=== PATIENT | male | born 1985 | race Two or more races ===

== ENCOUNTER 2017-12-26 14:43 | Emergency (ER) | payer SELFPAY ==
[2017-12-26] MEDS ORDERED: Diphtheria,Pertussis(Acell),Tetanus Vaccine 0.5 ML SDV IM ONE (14:58)
[2017-12-26] MEDS ORDERED: ceFAZolin 1 GM Vial IM ONE (14:58)
[2017-12-26] MEDS ORDERED: Lidocaine 1% 20 ML MDV INJECT ONE (14:58)
--- NOTE | 2017-12-26 15:01 | EDM.PDOC ---
ED HPI GENERAL MEDICAL PROBLEM - General Chief Complaint: Upper Extremity Injury/Pain Stated Complaint: LEFT HAND THUMB LAC Time Seen by Provider: 12/26/17 14:52 Source of Information: Reports: Patient History Limitations: Reports: No Limitations - History of Present Illness INITIAL COMMENTS - FREE TEXT/NARRATIVE: Patient is a 32-year-old male presents ED complaining of a laceration to the left thumb. Patient was using a custom grinder and accidentally slipped cutting through his glove and into the IP of the left thumb. patient is unable to extend the distal phalanx. Bleeding controlled with direct pressure. Tetanus status is not up-to-date. He has no sensory changes noted. Last meal was last night. He's states he has been snacking throughout the course today. Has no additional past medical history and currently taking no medications. Left 1-Thumb Pain Score (Numeric/FACES): 7 - Related Data Allergies Allergy/AdvReac Type Severity Reaction Status Date / Time No Known Allergies Allergy Verified 12/26/17 14:52 Home Meds: Home Meds Cephalexin [Keflex] 500 mg PO QID #40 cap 12/26/17 [Rx] Past Medical History - Past Health History Medical/Surgical History: Denies Medical/Surgical History Review of Systems - Review of Systems Review Of Systems: ROS reveals no pertinent complaints other than HPI. ED EXAM, GENERAL - Physical Exam Exam: See Below Exam Limited By: No Limitations General Appearance: Alert, WD/WN, No Apparent Distress Neck: Normal Inspection Respiratory/Chest: No Respiratory Distress, No Accessory Muscle Use Cardiovascular: Normal Peripheral Pulses, Regular Rate, Rhythm Peripheral Pulses: 4+: Radial (L) Neurological: Alert, Oriented, Normal Cognition Psychiatric: Normal Affect, Normal Mood Skin Exam: Warm, Dry, Normal Color Front/Back Body Diagram: 1 - Approximately 3.2 cm deep lacertion extending over the IP of the left thumb with bleeding controlled. Unable to extend the distal phalanx. No sensory changes noted. With pulling wound edges apart bone is exposed. ED TRAUMA EXTREMITY PROCEDURES - Laceration/Wound Repair Left Other Lac/Wound Length In cm: 3.2 Appearance: Subcutaneous, Clean Distal NVT: Neuro & Vascular Intact, Other (complete laceration to the extensor tendon.) Anesthetic Type: Local Local Anesthesia - Lidocaine (Xylocaine): 1% Plain Local Anesthetic Volume: Other (8) Skin Prep: Chlorhexidine (Hibiciens), Saline, Sterile Drape Exploration/Debridement/Repair: Wound Explored, In a Bloodless Field, Explored to Base, No Foreign Material Found Closed With: Sutures Suture Size: 4-0 # of Sutures: 4 Suture Type: Prolene, Interrupted, Simple, Other (Attempted to close with 5.0 sutures #2 with minimal luckwith approximating the wound. Switched to 4.0 thereafter. ) Drain Placement: No Sterile Dressing Applied: Nurse Tetanus Status Addressed: Yes Complications: No Course - Vital Signs Last Recorded V/S: Last Vital Signs Temp 98.1 F 12/26/17 15:01 Pulse 78 12/26/17 15:01 Resp BP 116/86 12/26/17 15:01 Pulse Ox 95 12/26/17 15:01 - Orders/Labs/Meds Orders: Active Orders 24 hr Category Date Time Status Vaccines to be Administered [RC] PER UNIT ROUTINE Care 12/26/17 14:58 Active Meds: Medications Discontinued Medications Generic Name Dose Route Start Last Admin Trade Name Freq PRN Reason Stop Dose Admin Cefazolin Sodium 1 gm 12/26/17 14:58 12/26/17 15:27 Ancef IM 12/26/17 14:59 1 gm ONETIME ONE Administration Diphtheria/Tetanus/Acell Pertussis 0.5 ml 12/26/17 14:58 12/26/17 15:21 Adacel IM 12/26/17 14:59 0.5 ml .ONCE ONE Administration Lidocaine HCl 20 ml 12/26/17 14:58 12/26/17 18:22 Xylocaine 1% INJECT 12/26/17 14:59 Not Given ONETIME ONE Lidocaine HCl 50 ml 12/26/17 15:09 12/26/17 18:22 Xylocaine 1% INJECT 12/26/17 15:10 50 ml ONETIME STA Administration - Re-Assessments/Exams Free Text/Narrative Re-Assessment/Exam: Patient has a deep laceration involving the extensor tendon of the left thumb. Will obtain x-ray of the left thumb. Have ordered Ancef 1 g IM, Adacel IM, and 1 % lidocaine to anesthetize the local area. X-ray of the thumb revealed: apparent fracture to the distal aspect of the proximal phalanx of the left thumb. No foreign debris noted. [address] Cardona account information clerk orthopedic surgeon. Requests closure with as small and few sutures as possible. Splint the thumb and start the patient on keflex. Have him followup with hand surgeon at [facility] this week. Laceration closed no cough medications. Is spent applied. Discharge instructions as documented. Departure - Departure Time of Disposition: 17:32 Disposition: Home, Self-Care 01 Condition: Good Clinical Impression: Laceration of thumb, left, with tendon involvement Qualifiers: Encounter type: initial encounter Qualified Code(s): S61.012A - Laceration without foreign body of left thumb without damage to nail, initial encounter Fracture of thumb Qualifiers: Encounter type: initial encounter Fracture type: open Phalanx: proximal Fracture alignment: nondisplaced Laterality: left Qualified Code(s): S62.515B - Nondisplaced fracture of proximal phalanx of left thumb, initial encounter for open fracture - Discharge Information Prescriptions: Cephalexin [Keflex] 500 mg PO QID #40 cap Instructions: Thumb Fracture, Laceration Care, Adult, [id number] Referrals: PCP,None [Primary Care Provider] - Forms: ED Department Discharge Additional Instructions: This coming Thursday Please call [facility] to schedule an appt with hand surgeon to be evaluated in the next week. Cleanse site twice daily, pat dry, reapply triple antibiotic ointment, and dressing. Do not soak the wound. Take the full course of keflex as prescribed. Utilize tylenol and ibuprofen in alternating fashion for pain. Keep splint in place until evaluated by hand surgeon. - My Orders Last 24 Hours: My Active Orders 12/26/17 14:58 Vaccines to be Administered [RC] PER UNIT ROUTINE - Assessment/Plan Last 24 Hours: My Active Orders 12/26/17 14:58 Vaccines to be Administered [RC] PER UNIT ROUTINE
[2017-12-26] MEDS ORDERED: Lidocaine 1% 50 ML MDV INJECT STA (15:09)
--- NOTE | 2017-12-26 18:34 | CR ---
Left thumb: Four views of the left thumb were obtained. Comparison: No prior study. Oblique lucent line is identified within the distal proximal phalanx of the thumb. This may represent artifact but difficult to exclude defect within the posterior cortex. Soft tissue injury is seen. Several small radiopacities projected around the IP joint of the thumb most likely representing external foreign bodies. No additional abnormality is seen. Impression: 1. Oblique lucent line as described above within the distal proximal phalanx of the thumb. 2. Other incidental findings. Diagnostic code #3
== END 2017-12-26 18:10 | disposition home or self-care (01) ==
LOC: JD.ED 14:43
DX: S62.515B Nondisplaced fracture of proximal phalanx of left thumb, initial encounter for open fracture (principal); S61.012A Laceration without foreign body of left thumb without damage to nail, initial encounter; Z23 Encounter for immunization
CPT/HCPCS: 12002; 13132; 73140; 90471; 90715; 96372; 99284; J0690; 12042; 99283-25